=== PATIENT | female | born 1945 | race Caucasian/White ===

== ENCOUNTER → 2017-08-30 | Outpatient (CLI) | payer MEDICARE, BC ==
[~2017-08-30] MED LIST: ALDACTONE25 MG PO; ASPIRIN 32325 MG/TAB PO; ASPIRIN E.C. 8181 MG PO; AVAPRO150 MG PO; CALCIUM + D 6001 TA1 PO; EFFIENT10 MG PO; EPA FISH OIL1000 MG PO; GLUCOSAMINE & C1 CAP PO; LIBRAX 5 MG-2.51 CA1 PO; LIPITOR40 MG PO; LIPITOR80 MG PO; LOPRESSOR 225 MG/TAB PO; MULTIPLE VITAMI1 TAB PO; MULTIVITAMIN FO1 CAP PO; NIACIN500 M1 PO; NIASPAN500 MG PO; NITROSTAT0.4 MG/TAB SL; PRILOSEC20 MG PO; PRILOSEC40 MG PO; VASOTEC 2.2.5 MG/TAB PO
== END ==
LOC: MC.RAD 07:00
DX: Z12.31 Encounter for screening mammogram for malignant neoplasm of breast (principal)

== ENCOUNTER → 2018-09-18 | Outpatient (CLI) | payer MEDICARE, BC | LOC: MC.RAD 07:52 | DX: Z12.31 Encounter for screening mammogram for malignant neoplasm of breast (principal) ==

== ENCOUNTER → 2020-09-26 | Outpatient (CLI) | payer MEDICARE, BC | LOC: MC.RAD 07:00 | DX: Z12.31 Encounter for screening mammogram for malignant neoplasm of breast (principal) ==

== ENCOUNTER 2021-07-08 09:38 | Emergency (ER) | payer MEDICARE, BC ==
[~2021-07-08] VITALS: Ht 160 cm; Wt 70.5 kg
[2021-07-08 09:49] VITALS: TEMP 98.1
[2021-07-08 10:45] VITALS: BP 139/80; PULSE 80
== END 2021-07-08 10:50 | disposition home or self-care (01) ==
LOC: COL.ER 09:38
DX: L76.22 Postprocedural hemorrhage of skin and subcutaneous tissue following other procedure (principal); I25.2 Old myocardial infarction; Z79.02 Long term (current) use of antithrombotics/antiplatelets; Z79.82 Long term (current) use of aspirin

== ENCOUNTER → 2021-12-19 | Outpatient (CLI) | payer MEDICARE, BC | LOC: MC.RAD 11-07 11:45 | DX: Z12.31 Encounter for screening mammogram for malignant neoplasm of breast (principal) ==

== ENCOUNTER → 2022-12-13 | Outpatient (CLI) | payer MEDICARE, BC | LOC: MC.RAD 06:54 | DX: Z12.31 Encounter for screening mammogram for malignant neoplasm of breast (principal) ==